=== PATIENT | male | born 1995 | race Caucasian/White ===

== ENCOUNTER 2016-03-06 11:47 | Emergency (ER) | payer OTHER ==
[~2016-03-06] VITALS: Ht 185.4 cm; Wt 83.6 kg
[2016-03-06 11:51] VITALS: Ht 185.4 cm; Wt 83.6 kg
[2016-03-06] MEDS ORDERED: SODIUM CHLORIDE 0.9% 1000ML 1,000 ML IV STA (12:02)
[2016-03-06] MEDS ORDERED: OPTIRAY 320 IV PRN (12:15)
[2016-03-06 12:18] LABS: BASO % 0.2 %; BASO ABS # 0.02 K/uL (0-0.2); COMPLETE YES; EOS % 0.7 %; IG% 0.1 %; LYMPH % 16.7 %; LYMPH ABS # 1.74 K/uL (1.2-3.4); MEAN CORPUSCULAR HEMOGLOBIN 34.2 pg (25-34); MEAN CORPUSCULAR HGB CONC 36.8 g/dl (32-36); MEAN PLATELET VOLUME 11.2 fL (7.4-10.4); MONO % 9.7 %; NEUT % 72.6 %; PLATELET COUNT 204 K/uL (130-400); WHITE BLOOD COUNT 10.39 K/uL (4.8-10.8)
--- NOTE | 2016-03-06 12:26 | EMERGENCY ROOM VISIT NOTE ---
History First contact with patient: 11:52 Chief Complaint: ABDOMINAL PAIN Stated Complaint: PAIN ON RIGHT SIDE OF ABDOMEN Nursing Triage Summary: Triage note: Pt reports right lower abd pain since yesterday. pt reports is more constant today. History of Present Illness The patient is a 20 year old male who presents to the Emergency Room with complaints of right lower abdominal pain which began yesterday morning. The patient reports that he woke up yesterday morning with mild pain in his right lower abdomen. He states that the pain was initially intermittent, but became constant and more severe this morning. He states that he was unable to sleep due to the pain. He rates the discomfort an 8/10 and has not taken any medications for the symptoms. He states the pain is worse with movement or walking. He denies any associated nausea/vomiting, urinary symptoms or changes in bowel movements. He denies any history of abdominal surgeries. He denies any recent illnesses or fevers/chills. Review of Systems A complete 10-point Review of Systems was discussed with the patient, with pertinent positives and negatives listed in the History of Present Illness. All remaining Review of Systems questions can be considered negative unless otherwise specified. Social History Smoking Status: Current Some Day Smoker Current/Historical Medications No Active Prescriptions or Reported Meds Allergies Coded Allergies: No Known Allergies (Unverified , 03/06/16) Physical Exam Vital Signs Date Time Temp Pulse Resp B/P Pulse Ox O2 Delivery O2 Flow Rate FiO2 03/06/16 15:50 37.1 74 18 132/77 98 03/06/16 15:49 74 18 132/77 98 Room Air 03/06/16 14:16 78 18 138/76 98 Room Air 03/06/16 11:51 37.1 75 18 141/73 95 Room Air Physical Exam VITALS: Vitals are noted on the nurse's note and reviewed by myself. Vital signs stable. GENERAL: This is a 20-year-old male, in no acute distress, nondiaphoretic, well- developed well-nourished. SKIN: Capillary reflex less than 2 seconds. HEENT: Normocephalic. PERRLA. EOMI. Nares patent. Mucous membranes moist. Neck is supple without nuchal rigidity. HEART: Regular rate and rhythm without murmurs gallops or rubs. LUNGS: Clear to auscultation bilaterally without wheezes, rales or rhonchi. ABDOMEN: Positive bowel sounds x 4. The abdomen is soft. There is moderate tenderness over the right lower quadrant and right flank. No guarding or rebound tenderness. Negative Rovsing sign. Negative Pelletier sign. NEURO: Patient was alert and oriented to person place and time. Medical Decision & Procedures ER Provider Diagnostic Interpretation: ABDOMEN AND PELVIS CT WITH IV AND ORAL CONTRAST CT DOSE: 328.14 mGy.cm HISTORY: Pain. Nausea. RLQ pain TECHNIQUE: Multiaxial CT images of the abdomen and pelvis were performed following the use of intravenous and oral contrast. COMPARISON STUDY: None. FINDINGS: The lung bases are clear. The liver, spleen, gallbladder, pancreas, kidneys, and adrenal glands are within normal limits. No bowel wall thickening or obstruction. The pelvic organs are unremarkable. No suspicious lytic or blastic osseous lesions. Findings of mild mesenteric adenitis. Normal appendix. IMPRESSION: Mild mesenteric adenitis. Otherwise negative study. Normal appendix. Laboratory Results 03/06/16 12:10 Red Blood Count 4.30, Mean Corpuscular Volume 93.0, Mean Corpuscular Hemoglobin 34.2, Mean Corpuscular Hemoglobin Concent 36.8, Mean Platelet Volume 11.2, Neutrophils (%) (Auto) 72.6, Lymphocytes (%) (Auto) 16.7, Monocytes (%) (Auto) 9.7, Eosinophils (%) (Auto) 0.7, Basophils (%) (Auto) 0.2, Neutrophils # (Auto) 7.54, Lymphocytes # (Auto) 1.74, Monocytes # (Auto) 1.01, Eosinophils # (Auto) 0.07, Basophils # (Auto) 0.02 03/06/16 12:10 Test 03/06/16 12:10 03/06/16 14:15 White Blood Count 10.39 K/uL (4.8-10.8) Red Blood Count 4.30 M/uL (4.7-6.1) Hemoglobin 14.7 g/dL (14.0-18.0) Hematocrit 40.0 % (42-52) Mean Corpuscular Volume 93.0 fL (80-100) Mean Corpuscular Hemoglobin 34.2 pg (25-34) Mean Corpuscular Hemoglobin Concent 36.8 g/dl (32-36) Platelet Count 204 K/uL (130-400) Mean Platelet Volume 11.2 fL (7.4-10.4) Neutrophils (%) (Auto) 72.6 % Lymphocytes (%) (Auto) 16.7 % Monocytes (%) (Auto) 9.7 % Eosinophils (%) (Auto) 0.7 % Basophils (%) (Auto) 0.2 % Neutrophils # (Auto) 7.54 K/uL (1.4-6.5) Lymphocytes # (Auto) 1.74 K/uL (1.2-3.4) Monocytes # (Auto) 1.01 K/uL (0.11-0.59) Eosinophils # (Auto) 0.07 K/uL (0-0.5) Basophils # (Auto) 0.02 K/uL (0-0.2) RDW Standard Deviation 41.8 fL (36.4-46.3) RDW Coefficient of Variation 12.4 % (11.5-14.5) Immature Granulocyte % (Auto) 0.1 % Immature Granulocyte # (Auto) 0.01 K/uL (0.00-0.02) Anion Gap 11.0 mmol/L (3-11) Est Creatinine Clear Calc Drug Dose 119.0 ml/min Estimated GFR () 109.9 Estimated GFR (Non- 94.8 BUN/Creatinine Ratio 10.3 (10-20) Calcium Level 8.5 mg/dl (8.5-10.1) Total Bilirubin 0.4 mg/dl (0.2-1) Aspartate Amino Transf (AST/SGOT) 23 U/L (15-37) Alanine Aminotransferase (ALT/SGPT) 47 U/L (12-78) Alkaline Phosphatase 53 U/L (45-117) Total Protein 7.9 gm/dl (6.4-8.2) Albumin 4.4 gm/dl (3.4-5.0) Globulin 3.5 gm/dl (2.5-4.0) Albumin/Globulin Ratio 1.3 (0.9-2) Lipase 132 U/L (73-393) Urine Color YELLOW Urine Appearance CLEAR (CLEAR) Urine pH 7.5 (4.5-7.5) Urine Specific [place] 1.018 (1.000-1.030) Urine Protein NEG (NEG) Urine Glucose (UA) NEG (NEG) Urine Ketones NEG (NEG) Urine Occult Blood NEG (NEG) Urine Nitrite NEG (NEG) Urine Bilirubin NEG (NEG) Urine Urobilinogen NEG (NEG) Urine Leukocyte Esterase NEG (NEG) Medications Administered Medications (Trade) Dose Ordered Sig/Shaun[place] Route Start Time Stop Time Status Last Admin Dose Admin Sodium Chloride (Nss 1000ml) 1,000 ml @ 999 mls/hr Q1H1M STAT IV 03/06/16 12:02 03/06/16 13:02 DC 03/06/16 12:02 999 MLS/HR Medical Decision Differential diagnosis includes appendicitis, cholecystitis, mesenteric adenitis , gastroenteritis, colitis, among others. The patient was evaluated as above. Labs were drawn and IV access was obtained. Imaging studies were performed and read by radiology as above. The patient was medicated with 1 L normal saline solution.. The patient was reassessed multiple times during their stay in the emergency department and remained in stable condition. The patient is a 20-year-old male who presents today complaining of right lower quadrant abdominal and flank pain. Labs revealed no leukocytosis, anemia or concerning electrolyte abnormality. Urinalysis was not suggestive of infection or kidney stone. CT scan of the abdomen and pelvis was performed and showed no evidence of appendicitis. There were findings consistent with mesenteric adenitis. The patient was informed that this is due to a viral illness and is self-limiting. Conservative measures were discussed. The patient will follow- up with [facility] as needed and will return here for any worsening symptoms. Based on the patient's presentation, lab results, and imaging studies, I feel the patient is stable for outpatient treatment. The patient's case was reviewed with Dr. Wilburn, ED attending physician, who agreed with my assessment and treatment plan. Discharge instructions were reviewed with the patient. The patient verbalized understanding of my assessment and treatment plan and was discharged home in good condition. Impression Primary Impression: Mesenteric adenitis Departure Information Dispostion Home / Self-Care Condition GOOD Prescriptions No Active Prescriptions or Reported Meds Referrals No Doctor, Assigned (PCP) Patient Instructions My [facility] Additional Instructions You have been treated in the Emergency Department for your Abdominal Pain. Laboratory results and imaging studies have ruled out any emergent causes for your abdominal pain which would warrant admission or surgery. For pain control, you can use the following [id number] medicines (if >12 yo): - Regular strength (325mg/tab) Tylenol (acetaminophen) 2 tabs every 4-6 hours as needed. Do not exceed 12 tablets in a 24 hour period. Avoid taking more than 4 grams (4000 mg) of Tylenol per day. This includes any other sources of acetaminophen you may take on a regular basis. - Regular strength (200 mg/tab) Advil (ibuprofen) 1-2 tabs every 4-6 hours as needed. Do not exceed a dose of 3200 mg per day. Drink plenty of water and stay well hydrated. Follow-up with [facility] in 3-4 days for a recheck if you have persistent abdominal pain. Return to the emergency department if your symptoms persist despite treatment plan outlined above or if the following symptoms occur: fevers, chills, worsening nausea/vomiting, blood in your stool or urine.
[2016-03-06 12:37] LABS: BUN/CREATININE RATIO 10.3 (10-20); CALCIUM 8.5 mg/dl (8.5-10.1); CREATININE 1.1 mg/dl (0.60-1.40); POTASSIUM 3.7 mmol/L (3.5-5.1)
[2016-03-06 12:39] LABS: ALB/GLOB RATIO 1.3 (0.9-2)
[2016-03-06 14:44] LABS: URINE APPEARANCE CLEAR (CLEAR); URINE BILIRUBIN NEG (NEG); URINE COLOR YELLOW; URINE NITRITE NEG (NEG); URINE PH 7.5 (4.5-7.5); URINE SPECIFIC GRAVITY 1.018 (1.000-1.030); UROBILINOGEN NEG (NEG); ZZUR CULT IF INDIC CLEAN CATCH NO
[2016-03-06 14:52] LABS: MANUAL MICROSCOPIC REQUIRED? NO; REVIEW REQ? NO
--- NOTE | 2016-03-06 15:16 | DIAGNOSTIC IMAGING REPORT ---
ABDOMEN AND PELVIS CT WITH IV AND ORAL CONTRAST CT DOSE: 328.14 mGy.cm HISTORY: Pain. Nausea. RLQ pain TECHNIQUE: Multiaxial CT images of the abdomen and pelvis were performed following the use of intravenous and oral contrast. COMPARISON STUDY: None. FINDINGS: The lung bases are clear. The liver, spleen, gallbladder, pancreas, kidneys, and adrenal glands are within normal limits. No bowel wall thickening or obstruction. The pelvic organs are unremarkable. No suspicious lytic or blastic osseous lesions. Findings of mild mesenteric adenitis. Normal appendix. IMPRESSION: Mild mesenteric adenitis. Otherwise negative study. Normal appendix. Electronically signed by: Evan García M.D. 03/06/2016 3:14 PM Dictated Date/Time: 03/06/2016 3:12 PM
[2016-03-06 15:50] VITALS: BP 132/77; PULSE 74; TEMP 37.1; O2SAT 98
== END 2016-03-06 15:51 | disposition home or self-care (01) ==
LOC: C.EDB 11:50
DX: I88.0 Nonspecific mesenteric lymphadenitis (principal); F17.200 Nicotine dependence, unspecified, uncomplicated